=== PATIENT | male | born 1940 | race Caucasian/White ===

== ENCOUNTER → 2017-02-18 | Outpatient (CLI) | payer OTHER, MEDICARE ==
[~2017-02-18] MED LIST: ACETAMINOPHEN325 M1 PO; ACTOS 45 MG45 M1 PO; ADULT LOW DOSE81 MG PO; AMARYL1 MG PO; AMARYL2 MG PO; AMLODIPINE BESY10 MG PO; ARICEPT10 M1 PO; ASPIRIN EC81 M1 PO; ATIVAN1 MG PO; AVODART0.5 MG PO; BENADRYL ALLERG25 MG PO; CELEXA 20 MG TA20 M1 PO; CIPROFLOXACIN500 M3 PO; FLOMAX PO; FLONASE 0.05%50 MCG NASAL; GLUCOPHAGE1000 MG PO; HYDROCODONE-AP1 EAC6 PO; JANUVIA100 MG PO; LIPITOR20 MG PO; LIPITOR40 MG PO; LISINOPRIL40 MG PO; MEDROLDOSEPACK PO; MULTI VITAMIN1 EACH PO; MULTIVITAMINS PO; NAMENDA 5 MG TAB5 M1 PO; OMEPRAZOLE OR; PLAVIX 75 MG TA75 MG PO; PRESERVISION T1 EACH PO; PRILOSEC 20 MG20 MG PO; PRILOSEC20 MG PO; REGLAN 10 MG TA10 MG PO; REMERON15 MG PO; REQUIP 1 MG TABL1 M1 PO; SKELAXIN 800 M800 M1 PO; TIZANIDINE HCL4 M1 PO; TIZANIDINE HCL4 MG PO; TOPROL XL50 MG PO; TRAZODONE HCL50 MG PO; VALIUM5 MG PO; VICODIN 5-5001 EACH PO; VITAMIN D31000 UNI2 PO; XANAX 0.25 MG0.25 MG PO; ZOCOR20 MG PO
== END ==
LOC: NUC 06:40
DX: I25.10 Atherosclerotic heart disease of native coronary artery without angina pectoris (principal)

== ENCOUNTER → 2018-05-22 | Outpatient (CLI) | payer OTHER, MEDICARE ==
--- NOTE | 2018-05-22 10:22 | 2DMMODE ---
[facility] [place] [address] 2 D/M-MODE ECHOCARDIOGRAM Name: PONCHO CARRILLO Room #: REG [facility]#: [id number] ������������� Admission: 05/22/18 ������������� Attend Phys: Chet Hinojosa MD Discharge: ��� ������������� ��� Date of : 42 Date of Service: 05/22/18 1022 �� Report #: [id number] �������� ��������������������������������������������[id number] THIS REPORT FOR: //name// APPROVED REPORT Study performed: 05/22/2018 09:31:12 EXAM: Comprehensive 2D, Doppler, and color-flow Echocardiogram Patient Location: Out-Patient Status: routine BSA: 2.07 HR: 47 bpm BP: 168/70 mmHg Rhythm: NSR/BUNDLE Other Information Study Quality: Good Indications CAD. Hx: Stent, HTN, DM, LBBB. 2D Dimensions RVDd: 38.61 mm IVSd: 13.03 (7-11mm) LVOT Diam: 21.17 (18-24mm) LVDd: 57.79 mm PWd: 11.30 (7-11mm) Ascending Ao: 35.56 (22-36mm) LVDs: 42.28 (25-40mm) Aortic Root: 36.98 mm Volumes Left Atrial Volume (Systole) Single Plane 4CH: 67.03 mL Single Plane 2CH: 71.24 mL LA ESV Index: 36.00 mL/m2 Aortic Valve AoV Peak Jonny.: 1.48 m/s AO Peak Gr.: 8.79 mmHg LVOT Max P.03 mmHg LVOT Max V: 0.87 m/s SARAH Vmax: 2.07 cm2 Mitral Valve E/A Ratio: 0.7 MV Decel. Time: 405.87 ms MV E Max Jonyn.: 0.64 m/s [facility] [address] [place] [address] 2 D/M-MODE ECHOCARDIOGRAM Name: PONCHO CARRILLO CHARMAINE Room #: REG [facility]#: [id number] ������������� Admission: 05/22/18 ������������� Attend Phys: Chet Hinojosa MD Discharge: ��� ������������� ��� Date of : 42 Date of Service: 05/22/18 1022 �� Report #: [id number] �������� ��������������������������������������������[id number] MV A Jonny.: 0.98 m/s MV PHT: 117.70 ms IVRT: 129.18 ms Pulmonary Valve PV Peak Jonny.: 1.38 m/s PV Peak Gr.: 7.60 mmHg Pulmonary Vein P Vein S: 0.71 m/s P Vein A: 0.32 m/s P Vein D: 0.38 m/s P Vein A Dur.: 143.0 msec P Vein S/D Ratio: 1.87 Tricuspid Valve RAP Estimate: 5.00 mmHg Left Ventricle The left ventricle is normal size. Paradoxical septal motion consistent with conduction abnormality. Moderate basal septal hypertrophy is present. Left ventricular systolic function is normal. LVEF is 50-55%. Mild diastolic dysfunction is present (impaired relaxation pattern). Right Ventricle The right ventricle is normal size. The right ventricular systolic function is normal. Atria Left atrium is mildly dilated. The right atrium size is normal. Aortic Valve Aortic valve is trileaflet, mildly calcified. No aortic regurgitation is present. There is no aortic valvular stenosis. Mitral Valve The mitral valve is normal in structure. Mild mitral regurgitation. Tricuspid Valve The tricuspid valve is normal in structure. Trace tricuspid regurgitation. Unable to assess PA pressure. Pulmonic Valve The pulmonary valve is normal in structure. Trace pulmonic regurgitation. [facility] [employer] [place] [address] 2 D/M-MODE ECHOCARDIOGRAM Name: PONCHO CARRILLO Room #: REG CL [facility]#: [id number] ������������� Admission: 05/22/18 ������������� Attend Phys: Chet Hinojosa MD Discharge: ��� ������������� ��� Date of : 42 Date of Service: 05/22/18 1022 �� Report #: [id number] �������� ��������������������������������������������[id number] [employer] The aortic root is normal in size. The ascending aorta is normal in size. IVC is normal in size and collapses >50% with inspiration. Pericardium There is no pericardial effusion. <Conclusion> The left ventricle is normal size. Left ventricular systolic function is normal. Paradoxical septal motion consistent with conduction abnormality. Mild diastolic dysfunction is present (impaired relaxation pattern). The right ventricle is normal size. Left atrium is mildly dilated. Aortic valve is trileaflet, mildly calcified. Mild mitral regurgitation. Trace tricuspid regurgitation. ��������������������������������������������� <ELECTRONICALLY SIGNED> ���������������������������������������� By: Chet Hinojosa MD ��������������������������������������������� 05/22/18 1022 102 102 Chet Hinojosa MD /INF
== END ==
LOC: CV 08:15
DX: I34.0 Nonrheumatic mitral (valve) insufficiency (principal); I25.10 Atherosclerotic heart disease of native coronary artery without angina pectoris; Z88.8 Allergy status to other drugs, medicaments and biological substances; I10 Essential (primary) hypertension; E11.9 Type 2 diabetes mellitus without complications; I44.7 Left bundle-branch block, unspecified; Z95.0 Presence of cardiac pacemaker

== ENCOUNTER → 2018-10-13 | Outpatient (CLI) | payer OTHER, MEDICARE | LOC: RAD 12:42 | DX: R06.00 Dyspnea, unspecified (principal) ==

== ENCOUNTER 2018-10-30 06:53 | Outpatient (CLI) | payer OTHER, MEDICARE ==
[~2018-10-30] VITALS: Ht 175.3 cm; Wt 90.7 kg
[2018-10-30] VITALS (12 sets, daily range): BP systolic 111–152; BP diastolic 50–87
[2018-10-30 07:41] LABS: HEMOGLOBIN 13.6 gm/dL (14.0-18.0); MCH 26.9 pg (26.0-34.0); MCHC 33.2 g/dL (28.0-37.0); RBC 5.06 mil/uL (4.50-6.00); RDW 15.9 % (10.5-14.5); WBC 4.2 thou/uL (4.0-11.0)
[2018-10-30] MEDS ORDERED: LISINOPRIL20 MG PO (07:47)
[2018-10-30] MEDS ORDERED: JARDIANCE25 MG PO (07:51)
[2018-10-30] MEDS ORDERED: CHLORTHALIDONE25 MG PO (07:51)
[2018-10-30] MEDS ORDERED: LINZESS145 MCG PO (07:52)
[2018-10-30] MEDS ORDERED: LEXAPRO 10 MG T10 M1 PO (07:53)
[2018-10-30] MEDS ORDERED: SEROQUEL 25 MG25 M1 PO (07:53)
[2018-10-30 07:54] LABS: CREATININE 1.3 mg/dL (0.7-1.3); POTASSIUM 4.3 mmol/L (3.5-5.1)
--- NOTE | 2018-10-30 08:30 | EKG ---
[place] [address] [address] [place] [place] [address] ELECTROCARDIOGRAM REPORT Name: PONCHO CARRILLO [id number] Admission: 10/30/18 Attend Phys: Chet Hinojosa MD Discharge: Date of : 42 Report #: [id number] THIS REPORT FOR: //name// [facility] Test Date: 2018-10-30 Test Time: 07:46:51 Pat Name: PONCHO CARRILLO Department: Room: Gender: Box Office Attendant: Sylvia CHAVARRIA : 1940 Requested By: Chet Hinojosa Order Number: [id number] MD: Westley Hernandez Measurements Intervals [place] Rate: 59 P: 64 MO: 219 QRS: -60 QRSD: 169 T: 134 QT: 471 QTc: 467 Interpretive Statements Sinus rhythm Borderline prolonged [place] interval Left bundle branch block Compared to ECG 06/27/2015 18:30:04 No significant changes Electronically Signed On 10-30-2018 8:30:07 CDT by Westley Hernandez [email or web address] <ELECTRONICALLY SIGNED> By: Westley Hernandez MD, [facility] 10/30/18829 5 5 Westley Hernandez MD, [facility] /EPI
--- NOTE | 2018-10-30 16:49 | CATHLAB ---
[facility] [place] [place] [address] INVASIVE PROCEDURE REPORT Name: PONCHO CARRILLO Room #: 209-P [facility]#: [id number] Admission: 10/30/18 Attend Phys: Chet Hinojosa MD Discharge: Date of : 42 Date of Service: 10/30/18 1649 Report #: [id number] THIS REPORT FOR: //name// APPROVED REPORT Study performed: 10/30/2018 07:44:54 Patient Details The patient is a 78 year-old male Event Personnel Chet Hinojosa Sourcing Manager, Malaika Beard RN, Jose Lees RTR Joana, Berenice Jones Monitor, Jose Antonio Jones RTR Monitor Procedures Performed Left Heart Cath w/or w/o Coronaries 2619900 LHC FFR [id number] FFR C[address] Place w/wo Plasty Single LAD 592671 Indication Abnormal ECG, Dizziness and vertigo, Dyspnea Risk Factors HypercholesterolemiaPhysical Activity, Coronary Artery DiseaseHypertension Previous Procedures/Diagnoses Previous PCI Procedure Narrative The Right Groin^ was infiltrated with 1% Lidocaine subcutaneous anesthesia. A PINNACLE 4FR Sheath #[id number] sheath was inserted into the RFA^. Coronary angiography was performed using coronary diagnostic catheters. The right coronary system was accessed and visualized with a JR4 catheter. The left coronary system was accessed and visualized with a JL4 catheter. The left ventricle was accessed and visualized with a PIGTAIL catheter. The patient tolerated the procedure well and there were no complications associated with the procedure. There was no hematoma. Intraoperative Conscious Sedation Sedation start time: 826 Case end Time: 926 Fentanyl 50 mcg Versed 1 mg [facility] [address] [place] [address] INVASIVE PROCEDURE REPORT Name: PONCHO CARRILLO Room #: 209-P REG [facility]#: [id number] Admission: 10/30/18 Attend Phys: Chet Hinojosa MD Discharge: Date of : 42 Date of Service: 10/30/18 1649 Report #: [id number] Fluoro Time: 32.20 minutes Dose: DAP 52393.00 cGycm2 3724 mGy Contrast Type and Amount: Visipaque 125 ml Coronary Angiography The patient's coronary anatomy is right dominant. Diagnostic Cath Left Main This is a short segment, with no flow-limiting lesions. LAD There is a moderate to severe stenosis in the ostial/proximal segment. The remaining segments of the LAD did not have any flow-limiting lesions. Diagonal 1 There is a stent in the proximal segment, has a severe stenosis at the distal edge, 80%. Diagonal 2 This is a patent vessel, with no flow-limiting lesions. Circumflex This is a moderate size caliber vessel with mild calcification and mild disease in the proximal segment, 20%. OM1 This is a patent vessel, with no flow-limiting lesions. OM2 This is a patent vessel, with no flow-limiting lesions. Right Coronary This is a dominant vessel with mild disease in the proximal segment, 20%. R PDA This is a patent vessel, with no flow-limiting lesions. RPLV This is a patent vessel, with no flow-limiting lesions. Left Ventriculography Left Ventriculography was not performed. An LVEDP was measured and there is no gradient across the outflow tract. IVUS Anticoagulation was achieved with Angiomax. Fractional Flow Willow was performed on the ostial/proximal LAD segment vessel. A JL4 Guide Catheter was used to engage the left coronary artery ostium. A FFR wire was used. IVUS Findings FFR was performed with a 2 minute infusion of adenosine through a peripheral IV line. There was no change in the FFR at the conclusion of the adenosine infusion. Hemodynamics [facility] [address] [place] [address] INVASIVE PROCEDURE REPORT Name: PONCHO CARRILLO Room #: 209-P REG [facility]#: [id number] Admission: 10/30/18 Attend Phys: Chet Hinojosa MD Discharge: Date of : 42 Date of Service: 10/30/18 1649 Report #: [id number] The aortic pressure is 129/57 mmHg with a mean of 80 mmHg. The left ventricular pressure is 137/14 mmHg with a mean of mmHg. The left ventricular end diastolic pressure is 21 mmHg. PCI Technique Lesion Anticoagulation was achieved with Angiomax. Percutaneous coronary intervention was performed on the first diagnonal branch segment. The lesion stenosis prior to intervention was 80% with SANDY 3 flow. A VISTA 6FR JL4 #[id number] Guide Catheter was used to engage the ostium. A Luge Wire .014 x 182CM #[id number] Interventional Guidewire was used to cross the lesion. BALLOON DILATION A Balloon catheter Euphora RX 2.0 x 6 #[id number] was inserted and inflated up to 10.00atm for 11seconds. Additional Inflation: 12.00atm for 14seconds. STENT DEPLOYMENT A stent RESOLUTE GAY RX 2.25 X 8 #[id number] was inserted and inflated up to 14.00atm for 36seconds. Additional Inflation: 12.00atm for 7seconds. Additional Inflation: 18.00atm for 26seconds. POST STENT DEPLOYMENT BALLOON DILATION A Balloon catheter TREK NC RX 2.5 X 8 #[id number] was inserted and inflated up to 18.00atm for 17seconds. Final angiography reveals 5 % stenosis with SANDY 3 flow. PCI Technique Lesion The lesion stenosis prior to intervention was ostial/proximal LAD segment% with SANDY JL4 flow. A left coronary artery Guide Catheter was used to engage the ostium. A FFR wire Interventional Guidewire was used to cross the lesion. BALLOON DILATION A Balloon catheter FFR was performed with a 2 minute infusion of adenosine through a peripheral IV line. There was no change in the FFR at the conclusion of the adenosine infusion. was inserted and inflated up to kalia for seconds. Conclusion 1. Successful insertion of a drug-eluting stent into the first diagonal artery. 2. Borderline stenosis in the ostial/proximal LAD segment, with a negative FFR. 3. Mild disease in the left circumflex and RCA. [facility] [address] [place] [address] INVASIVE PROCEDURE REPORT Name: PONCHO CARRILLO Room #: 209-P REG [facility].#: [id number] Admission: 10/30/18 Attend Phys: Chet Hinojosa MD Discharge: Date of : 42 Date of Service: 10/30/181648 Report #: [id number] 4. Recommend dual antiplatelet therapy and aggressive risk factor management. <ELECTRONICALLY SIGNED> By: Chet Hinojosa MD 10/30/181648 48 48 Chet Hinojosa MD /INF
--- NOTE | 2018-10-30 18:21 | NUR ---
PT ARRIVED ON UNIT AT 1030. PT POST-CATH PROCEDURE. FALL PRECAUTIONS ARE IN PLACE. ASSESSMENT CHARTED. PT A&O X4. PT ARRIVED WITH SPOUSE AND CHILDREN. PT STATED HIS WAS IN ZERO OUT OF TEN PAIN. PT'S RIGHT GROIN SITE IS CLEAN, DRY, AND INTACT. NO BLEEDING PRESENT. NO HEMATOMA PRESENT. PT'S VITAL SIGNS ARE STABLE. PT IS BEDREST. PT STARTED POST VITAL SIGNS. PT AND FAMILY EDUCATED ON POST-PROCEDURE RULES AND INFORMATION. PT AND FAMILY STATED UNDERSTANDING.
--- NOTE | 2018-10-30 18:47 | NUR ---
ASSUMED PT CARE AT 1030. PT A&O X4. FALL PRECAUTIONS ARE IN PLACE. ASSESSMENT CHARTED. PT'S VITAL SIGNS ARE STABLE. PT STATED HE HAS HAD ZERO OUT OF TEN PAIN. PT'S RIGHT GROIN SITE IS CLEAN, DRY, AND INTACT. NO BLEEDING AT GROIN SITE. NO HEMATOMA AT GROIN SITE. FAMILY VISITED PT THROUGHOUT THE DAY. FAMILY EDUCATED ABOUT PT'S STATUS. PT'S FAMILY COMMUNICATED UNDERSTANDING WITH EDUCATION. PT RECEIVED 6 HRS OF NORMAL SALINE AT 100 MLS/HR. PT COMPLETED 6 HRS AT 1800. PT COMPLETED POST-CATH VITAL SIGNS AT 1515. ASSESSED PT'S GAIT. PT'S GAIT IS STABLE AND BALANCED.
[2018-10-31] VITALS: BP 121/54
[2018-10-31 04:00] VITALS: BP 132/52
[2018-10-31 05:39] LABS: HEMATOCRIT 39.4 % (42.0-52.0); HEMOGLOBIN 12.9 gm/dL (14.0-18.0); MCH 26.6 pg (26.0-34.0); MCHC 32.8 g/dL (28.0-37.0); MCV 81.1 fL (80.0-100.0); RBC 4.86 mil/uL (4.50-6.00); RDW 15.8 % (10.5-14.5); WBC 4.1 thou/uL (4.0-11.0)
[2018-10-31 05:49] LABS: ALBUMIN 3.9 g/dL (3.4-5.0); CALCIUM 9.1 mg/dL (8.5-10.1); CREATININE 1.2 mg/dL (0.7-1.3); TOTAL BILIRUBIN 0.6 mg/dL (<0.1-1.0); TOTAL PROTEIN 7.6 g/dL (6.4-8.2)
--- NOTE | 2018-10-31 06:31 | NUR ---
ASSUME CARE 1900. PT/VITALS STABLE. DENIES ANY PAIN. UP AD KIKO. RIGHT GROIN CDI. PROGRESSING WELL WITH POC. PLAN IS POSSIBLE DISCHARGE HOME TODAY. ADEQUATE REST NOTED. WILL CONTINUE TO FOLLOW WITH POC
--- NOTE | 2018-10-31 07:38 | EKG ---
[place] [address] [place] [address] ELECTROCARDIOGRAM REPORT Name: PONCHO CARRILLO Room #: 209-P [facility]#: [id number] Admission: 10/30/18 Attend Phys: Chet Hinojosa MD Discharge: Date of : 42 Report #: [id number] THIS REPORT FOR: //name// 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: EMILY : 1940 Requested By: Chet Hinojosa Order Number: [id number] MD: Westley Hernandez Measurements Intervals [place] Rate: 57 P: 74 FL: 217 QRS: -60 QRSD: 171 T: 154 QT: 478 QTc: 466 Interpretive Statements Sinus rhythm Borderline prolonged [place] interval Left bundle branch block Compared to ECG 10/30/2018 07:46:51 No significant changes Electronically Signed On 10-31-2018 7:38:12 CDT by Westley Hernandez [email or web address] <ELECTRONICALLY SIGNED> By: Westley Hernandez MD, [facility] 10/31/18 0738 1004 1004 Westley Hernandez MD, [facility] /EPI
[2018-10-31 08:10] VITALS: BP 169/73
[2018-10-31] MEDS ORDERED: CLOPIDOGREL75 MG PO (08:17)
[2018-10-31 08:25] VITALS: BP 132/52
[2018-10-31] MEDS ORDERED: PANTOPRAZOLE SO40 M1 PO (08:26)
[2018-10-31 08:47] VITALS: BP 169/73
--- NOTE | 2018-10-31 09:58 | NUR ---
PT CARE ASSUMED APPROX 0700. PT ALERT AND ORIENTED X4. DENIES PAIN AND SOA. VSS. BS WNL. PT DISCHARGED AT THIS TIME. PAPERWORK FOR DISCHARGE REVIEWED WITH PT AND SPOUSE. BOTH DENY QUESTIONS OR CONCERNS REGARDING MEDS, SCRIPTS, F/U APPTS, POST CATH SITE CARE, ACTIVITY, DIET OR GENERAL POST HOSPITAL CARES. IV OUT, TELE BOX OFF. HOSPITAL STAFF ESCORTED PT OUT VIA WHEELCHAIR.
--- NOTE | 2018-10-31 13:43 | EKG ---
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: [email or web address] : 1940 Requested By: Chet Hinojosa Order Number: [id number] MD: Chet Hinojosa Measurements Intervals [place] Rate: 61 P: 75 PA: 230 QRS: -59 QRSD: 178 T: 144 QT: 480 QTc: 484 Interpretive Statements Sinus rhythm Ventricular premature complex Prolonged PA interval Left bundle branch block Compared to ECG 10/30/2018 07:46:51 Ventricular premature complex(es) now present Electronically Signed On 10-31-2018 13:43:21 CDT by Chet Hinojosa [email or web address] <ELECTRONICALLY SIGNED> By: Chet Hinojosa MD 10/31/18 1343 4 4 Chet Hinojosa MD /RAJEEV
--- NOTE | 2018-11-01 11:25 | D ---
[facility] [place] [address] DISCHARGE SUMMARY Name: PONCHO CARRILLO Room #: DEP [facility]#: [id number] Admission: 10/30/18 Attend Phys: Chet Hinojosa MD Discharge: 10/31/18 Date of : 42 Report #: [id number] THIS REPORT FOR: //name// CC: Chet Butler DATE OF SERVICE: 10/31/2018 FINAL DIAGNOSES: 1. Unstable angina, status post percutaneous coronary intervention. 2. Remote history of coronary artery disease. 3. Chronic obstructive pulmonary disease. 4. Hypertension. 5. Hypercholesterolemia. 6. Gait instability. 7. Left bundle-branch block. HISTORY OF PRESENT ILLNESS: Please see the original H and P for full details. The patient presented with an episode of dyspnea, diaphoresis and weakness. It occurred at home and he had just walked into the house from the backyard. He developed dyspnea and diaphoresis. He almost passed out. They were concerned that this was similar to his previous presentation prior to undergoing stent placement remotely. We had initially talked about undergoing stress test. However, the family declined and wanted to proceed with a cardiac catheterization. Please see the cardiac catheterization report for full details. There was a borderline stenosis in the ostial/proximal segment of the LAD. An FFR was performed, nonischemic. The stent in the first diagonal artery had a severe restenosis at the distal edge. Angioplasty was performed with placement of a single drug-eluting stent. He has remained hemodynamically stable overnight. FINAL DISPOSITION: Aspirin 81 mg daily, Plavix 75 mg daily, amlodipine 10 mg, omeprazole, simvastatin, lisinopril 20 mg b.i.d., Jardiance, chlorthalidone, glimepiride, and metformin. He is given instructions for followup in the office. <ELECTRONICALLY SIGNED> By: Chet Hinojosa MD 11/01/18 1125 0825 1054 Chet Hinojosa MD /nt
== END 2018-10-31 09:30 | disposition home or self-care (01) ==
LOC: CATH 06:53 → 2N 10:03 → CATH 14:30 → ENTRNSPT 10-31 09:11 → EDTRNSPTSTS 10-31 09:24 → CATH 10-31 09:30
PROVIDERS: Internal Medicine Cardiovascular Disease
DX: I25.10 Atherosclerotic heart disease of native coronary artery without angina pectoris (principal); I10 Essential (primary) hypertension; E78.5 Hyperlipidemia, unspecified; E11.9 Type 2 diabetes mellitus without complications; N40.0 Benign prostatic hyperplasia without lower urinary tract symptoms; J44.9 Chronic obstructive pulmonary disease, unspecified; K21.9 Gastro-esophageal reflux disease without esophagitis; F41.9 Anxiety disorder, unspecified; Z98.890 Other specified postprocedural states; Z90.49 Acquired absence of other specified parts of digestive tract; Z79.899 Other long term (current) drug therapy; Z87.891 Personal history of nicotine dependence; Z88.8 Allergy status to other drugs, medicaments and biological substances; Z79.82 Long term (current) use of aspirin
CPT/HCPCS: 10081

== ENCOUNTER → 2019-06-17 | Outpatient (CLI) | payer OTHER, MEDICARE ==
[~2019-06-17] MED LIST changes: +CHLORTHALIDONE25 MG PO; +CLOPIDOGREL75 MG PO; +JARDIANCE25 MG PO; +LEXAPRO 10 MG T10 M1 PO; +LINZESS145 MCG PO; +LISINOPRIL20 MG PO; +PANTOPRAZOLE SO40 M1 PO; +SEROQUEL 25 MG25 M1 PO
--- NOTE | 2019-06-18 15:05 | P ---
[facility] [place] [address] PROCEDURE REPORT Name: PONCHO CARRILLO [id number] Admission: 06/17/19 Attend Phys: Rasta Krishnan Discharge: Date of : 42 Report #: [id number] THIS REPORT FOR: cc: Gus Butler,Rasta Goetz MD ~ CC: Rasta Butler MD DATE OF SERVICE: 06/17/2019 PROCEDURE PERFORMED: Incomplete colonoscopy. HISTORY OF PRESENT ILLNESS: The patient is a 78-year-old male with a history of anemia, hemoglobin 11. He denies any obvious blood in his stools. He does take aspirin and Plavix, which has been held for the last several days. Upper endoscopy was just performed with possible mass lesion in the mid esophagus noted at 30 cm. Biopsies were obtained. No evidence of bleeding. Plan is for colonoscopy. DESCRIPTION OF PROCEDURE: The risks and benefits of the procedure were explained to the patient, those risks including but not limited to bleeding, perforation, the risk of sedation. He understood these risks and gave informed consent. Sedation was given using propofol per anesthesia. Next, a digital rectal exam was initially performed, which was normal. Next, using a standard Olympus colonoscope, the scope was placed in the patient's anus and advanced under direct vision into the sigmoid colon, at which point there was obvious poor prep throughout the entire rectum and sigmoid colon. At this point, the procedure was terminated. The scope was withdrawn. The patient tolerated the procedure well. IMPRESSION: Poor prep. RECOMMENDATIONS: We will await upper endoscopy biopsies initially. If these are negative, consider repeat colonoscopy with a different prep in the near future as well as Hemoccult testing stools. Thank you for allowing me to participate in his care. <ELECTRONICALLY SIGNED> By: Rasta Brower MD 06/18/19 1505 0922 0944 Rasta Brower MD /nt
--- NOTE | 2019-06-18 15:05 | P ---
[facility] [place] [address] PROCEDURE REPORT Name: PONCHO CARRILLO [facility] [id number] Admission: 06/17/19 Attend Phys: Rasta Krishnan Discharge: Date of : 42 Report #: [id number] THIS REPORT FOR: cc: Gus Butler,Rasta Goetz MD ~ CC: Rasta Butler MD PROCEDURE PERFORMED: Upper endoscopy with biopsies. HISTORY OF PRESENT ILLNESS: The patient is a 78-year-old male with a history of mild anemia, recent hemoglobin was 11.3. Repeat hemoglobin 11. He denies any obvious blood in his stools. The patient does take aspirin and Plavix on a regular basis for history of cardiac stent. He has been holding this for the last few days. Plan is for EGD and colonoscopy today. DESCRIPTION OF PROCEDURE: The risks and benefits of the procedure were explained to the patient, those risks including but not limited to bleeding, perforation and the risk of sedation. He understood these risks and gave informed consent. Sedation was given using propofol per anesthesia. Next, using a standard Olympus upper endoscope, the scope was placed in the patient's mouth and advanced under direct vision through the esophagus, stomach and into the second portion of the duodenum. Larynx was normal in appearance. In the mid esophagus at 30 cm, a possible mass was noted and thickening in that area. Several biopsies were obtained. No evidence of ulceration or bleeding. The proximal esophagus and distal esophagus were normal. The GE junction was normal. Overall, the gastric mucosa was normal. The pylorus was normal and patent. The duodenal bulb, first and second portion were all normal. Random biopsies were obtained of the duodenum to rule out the possibility of celiac sprue. The scope was then withdrawn and the procedure terminated. The patient tolerated the procedure well. IMPRESSION: 1. Possible mass thickening in the mid esophagus at 30 cm. Biopsies obtained. 2. Otherwise, normal upper endoscopy. RECOMMENDATIONS: 1. Await biopsy results. 2. We will proceed with colonoscopy next today. [facility] [address] [place] [address] PROCEDURE REPORT Name: PONCHO CARRILLO CHARMAINE Room #: REG [facility] Penny#: [id number] Admission: 06/17/19 Attend Phys: Rasta Krishnan Discharge: Date of : 42 Report #: [id number] Thank you for allowing me to participate in his care. <ELECTRONICALLY SIGNED> By: Rasta Brower MD 06/18/19 1505 0920 0932 Rasta Brower MD /nt
--- NOTE | 2019-06-19 14:07 | PATH ---
[facility] [place] [address] PATHOLOGY RPT PROCEDURE Name: CARRILLOPONCHO Room #: REG CLSaima Kelly.#: [id number] Admission: 06/17/19 Date of : 42 Discharge: Report #: [id number] Path Case #: [id number] [facility] Accession Number: [id number] . 01 Material submitted: . PART A: duodenum - BIOPSY OF DUODENAL R/O SPRUE PART B: esophagus - BIOPSY OF 30CM ESOPHAGUS . 01 Clinical history: . History of anemia A: R/O sprue . 02 Diagnosis: A. Small bowel mucosa, duodenum rule out sprue, endoscopic biopsy: - No significant diagnostic abnormality present. - Negative for villous blunting or increase in intraepithelial lymphocytes. . B. 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 LBQ 06/18/2019 1334 Local . 02 Comment: Examination shows a poorly differentiated epithelioid neoplasm. A properly controlled p63 immunohistochemical stain is performed on block B1 and it shows strong nuclear reactivity present supporting the diagnosis rendered. . Co-review: Dr. Qian Montes De Oca . Findings of this case are communicated to Ms. Rita Verdin, nurse practitioner, at approximately 12:45 p.m. on 06/18/2019. . The esophageal biopsy is sent for Her-2 IHC analysis and the results will be reported in an addendum. (IUV/db; 06/18/2019) . 02 Electronically signed: . Josie Ramirez MD, Pathologist NPI- [id number] . 01 Gross description: . A. The specimen is received in formalin, labeled "Poncho Carrillo, biopsy of duodenal, R/O sprue". Received are three segments of pale tang soft tissue ranging in size from 0.3 to 0.4 cm in maximum dimensions. The specimen is submitted entirely [place] [address] PATHOLOGY RPT PROCEDURE Name: GERARDOPONCHOHAILEY MONTANO Room #: REG CLI [facility].#: [id number] Admission: 06/17/19 Date of : 42 Discharge: Report #: [id number] Path Case #: [id number] . B. The specimen is received in formalin, labeled "Poncho Carrillo, biopsy at 30 cm esophagus". Received are five segments of pale tang soft tissue ranging in size from 0.3 to 0.5 cm in maximum dimensions. The specimen is submitted entirely in cassette B1. (CAA; 06/17/2019) QAC/QAC 06/17/2019 1702 Local . 02 Pathologist provided ICD-10: C15.9 . 02 CPT . 205892, 589900, [id number] Specimen Comment: A courtesy copy of this report has been sent to [phone] Specimen Comment: [phone] Specimen Comment: Report sent to / DR BURGESS Performed at: [address], [place] [id number] MD Angelo Gil MD Phone: [phone] Performed at: [address] [id number] MD Josie Ramirez MD Phone: [phone]
== END | disposition home or self-care (01) ==
LOC: GI 07:30
DX: D64.9 Anemia, unspecified (principal); C15.9 Malignant neoplasm of esophagus, unspecified; E11.9 Type 2 diabetes mellitus without complications; Z98.890 Other specified postprocedural states; Z79.899 Other long term (current) drug therapy; Z88.8 Allergy status to other drugs, medicaments and biological substances; Z87.19 Personal history of other diseases of the digestive system
CPT/HCPCS: 62110; 62900

== ENCOUNTER → 2019-06-26 | Outpatient (CLI) | payer OTHER, MEDICARE | LOC: CAT 09:45 | DX: C15.9 Malignant neoplasm of esophagus, unspecified (principal); R90.82 White matter disease, unspecified ==

== ENCOUNTER → 2019-07-17 | Outpatient (CLI) | payer OTHER, MEDICARE ==
[~2019-07-17] VITALS: Ht 177.8 cm; Wt 87.1 kg
[~2019-07-17] MED LIST changes: +COREG6.25 MG PO; +GLIMEPIRIDE4 MG PO; +IRON325 PO; +LANTUS SUBQ; +OCUVITE ADULT1 EAC1 PO; +PROTONIX40 M2 PO; +SEROQUEL 50 MG50 M1 PO; +STOOL SOFTENER100 MG PO; +STRESS B-COMPL1 EACH PO; +ZOCOR 20 MG TAB20 M1 PO
--- NOTE | 2019-07-17 10:48 | P ---
[facility] [place] [address] PROCEDURE REPORT Name: PONCHO CARRILLO Room #: REG [facility] Robin.#: [id number] Admission: 07/17/19 Attend Phys: Rasta Krishnan Discharge: Date of : 42 Report #: [id number] THIS REPORT FOR: cc: Gus Butler,Rasta Goetz MD ~ CC: Rasta Butler MD DATE OF SERVICE: 07/17/2019 PROCEDURE PERFORMED: Colonoscopy with biopsies. HISTORY OF PRESENT ILLNESS: The patient is a 78-year-old male who underwent an EGD and attempted colonoscopy by myself on 06/17/2019. Reason for endoscopy at that time was anemia. Hemoglobin at that time was 11.3. No obvious blood in his stools. The patient had been on aspirin and Plavix for previous cardiac stent. Was noted to have a mass in the mid esophagus at 30 cm. 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 Colonoscopy at that time was attempted; however, the prep was poor. He then was evaluated by Dr. Barton with Oncology. A PET scan was performed showing activity in the mid esophagus, but no evidence of metastatic disease. We discussed reattempting colonoscopy with further prepping due to his history of anemia. Plan is likely for radiation therapy in the near future. He is also set up for an endoscopic ultrasound next week at [facility]. DESCRIPTION OF PROCEDURE: The risks and benefits of the procedure were explained to the patient, those risks including but not limited to bleeding, perforation and the risk of sedation. He understood these risks and gave informed consent. Sedation was given using propofol per anesthesia. Next, a digital rectal exam was initially performed, which was normal. Next, using a standard Olympus colonoscope, the scope was placed in the patient's anus and advanced under direct vision to the cecum. The overall prep was good in most areas; however, there were a few small areas where the prep was fair. I did perform multiple washings and aspirations, again most areas were well visualized. The visualized portion of the cecum were normal. The ileocecal valve was normal. Ascending colon was normal. In the transverse colon, a 5 mm sessile polyp was noted. This was removed with cold forceps, otherwise normal. Descending colon, normal. Again, a fair prep in the sigmoid colon, most areas were visualized was normal. The rectal mucosa was normal. On retroflexion, no abnormalities were noted. Scope was then withdrawn and the procedure terminated. The patient tolerated the procedure well. [address] [address] PROCEDURE REPORT Name: PONCHO CARRILLO Room #: REG SERAFIN Francis#: [id number] Admission: 07/17/19 Attend Phys: Rasta Krishnan Discharge: Date of : 42 Report #: [id number] IMPRESSION: 1. Small colon polyp. 2. Otherwise, normal colonoscopy. RECOMMENDATIONS: 1. Await biopsy results. 2. Agree with plan of endoscopic ultrasound in the near future and the patient is likely to start radiation therapy soon. Thank you for allowing me to participate in his care. <ELECTRONICALLY SIGNED> By: Rasta Brower MD 07/17/19 1048 0922 0940 Rasta Brower MD /nt
--- NOTE | 2019-07-22 14:08 | PATH ---
[facility] [address] [place] [address] PATHOLOGY RPT PROCEDURE Name: PONCHO CARRILLO Room #: REG [facility] M.R.#: [id number] Admission: 07/17/19 Date of : 42 Discharge: Report #: [id number] Path Case #: [id number] [facility] Accession Number: [id number] . 01 Material submitted: . colon - POLYP AT TRANSVERSE COLON. Modifiers: transverse . 01 Clinical history: . Anemia . 02 Diagnosis: Large bowel "polyp at transverse colon", endoscopic biopsy: - Polypoid fragment of large bowel mucosa with prominent intramucosal lymphoid aggregate. - Negative for dysplasia and malignancy. (MLK:essie; 07/20/2019) QMS 07/20/2019 1547 Local . 02 Electronically signed: . Bridger Weston MD, Pathologist NPI- [id number] . 01 Gross description: . The specimen is received in formalin, labeled "Poncho Carrillo, polyp at transverse colon" and consists of multiple fragments of tang tissue measuring 0.6 x 0.6 x 0.1 cm in aggregate which are entirely submitted in A1. (JEWELS; 07/17/2019) JFQ/JFQ 07/17/2019 1422 Local . 02 Pathologist provided ICD-10: D64.9 . 02 CPT . 335983 Specimen Comment: A courtesy copy of this report has been sent to [phone] Specimen Comment: Report sent to Performed at: [facility] [address] [id number] MD Angelo Gil MD Phone: [phone] Performed at: 02 [facility] [address] [id number] MD Gonzales Nash MD Phone: [phone]
== END | disposition home or self-care (01) ==
LOC: GI 07:05
DX: D64.9 Anemia, unspecified (principal); K63.5 Polyp of colon; J43.9 Emphysema, unspecified; K21.9 Gastro-esophageal reflux disease without esophagitis; E11.9 Type 2 diabetes mellitus without complications; Z87.891 Personal history of nicotine dependence; Z79.899 Other long term (current) drug therapy
CPT/HCPCS: 62110; 62900

== ENCOUNTER → 2019-08-03 | Outpatient (CLI) | payer OTHER, MEDICARE | LOC: SJCVC 10:49 | PROVIDERS: ATTEND Internal Medicine Cardiovascular Disease | DX: I45.4 Nonspecific intraventricular block (principal); R00.1 Bradycardia, unspecified; R94.31 Abnormal electrocardiogram [ECG] [EKG]; I25.10 Atherosclerotic heart disease of native coronary artery without angina pectoris; I10 Essential (primary) hypertension; E78.00 Pure hypercholesterolemia, unspecified; J44.9 Chronic obstructive pulmonary disease, unspecified; E11.9 Type 2 diabetes mellitus without complications; K21.9 Gastro-esophageal reflux disease without esophagitis; E78.5 Hyperlipidemia, unspecified; Z82.49 Family history of ischemic heart disease and other diseases of the circulatory system; Z79.899 Other long term (current) drug therapy; Z87.891 Personal history of nicotine dependence; Z79.84 Long term (current) use of oral hypoglycemic drugs; Z79.4 Long term (current) use of insulin ==

== ENCOUNTER → 2019-09-01 | Outpatient (CLI) | payer OTHER, MEDICARE | LOC: SJCVC 11:29 | PROVIDERS: ATTEND Internal Medicine Cardiovascular Disease | DX: R94.31 Abnormal electrocardiogram [ECG] [EKG] (principal); R07.9 Chest pain, unspecified; R06.09 Other forms of dyspnea; I25.10 Atherosclerotic heart disease of native coronary artery without angina pectoris; E78.00 Pure hypercholesterolemia, unspecified; I10 Essential (primary) hypertension; J44.9 Chronic obstructive pulmonary disease, unspecified; E11.9 Type 2 diabetes mellitus without complications; K21.9 Gastro-esophageal reflux disease without esophagitis; M10.9 Gout, unspecified; E78.5 Hyperlipidemia, unspecified; Z79.4 Long term (current) use of insulin; Z79.84 Long term (current) use of oral hypoglycemic drugs; Z79.899 Other long term (current) drug therapy; Z82.49 Family history of ischemic heart disease and other diseases of the circulatory system; Z87.891 Personal history of nicotine dependence ==

== ENCOUNTER → 2019-09-09 | Outpatient (CLI) | payer OTHER, MEDICARE | LOC: SJCVCIMAG 10:21 | PROVIDERS: ATTEND Internal Medicine Cardiovascular Disease | DX: I25.10 Atherosclerotic heart disease of native coronary artery without angina pectoris (principal); I10 Essential (primary) hypertension; E11.9 Type 2 diabetes mellitus without complications; J44.9 Chronic obstructive pulmonary disease, unspecified; Z79.4 Long term (current) use of insulin; Z79.899 Other long term (current) drug therapy ==

== ENCOUNTER 2019-12-05 20:07 | Emergency (ER) | payer OTHER, MEDICARE ==
[~2019-12-05] VITALS: Ht 175.3 cm; Wt 90.7 kg
[2019-12-05 20:23] LABS: HEMATOCRIT 41.7 % (42.0-52.0); HEMOGLOBIN 14.1 gm/dL (14.0-18.0); MCH 31.4 pg (26.0-34.0); MCHC 33.7 g/dL (28.0-37.0); MCV 93.1 fL (80.0-100.0); PLATELET COUNT 173 thou/uL (150-400); RBC 4.48 mil/uL (4.50-6.00); RDW 16.1 % (10.5-14.5); WBC 3.3 thou/uL (4.0-11.0)
[2019-12-05 20:37] LABS: ANION GAP 11 mmol/L (7-16); BUN 14 mg/dL (7-18); CALCIUM 8.8 mg/dL (8.5-10.1); CHLORIDE 103 mmol/L (98-107); CO2 27 mmol/L (21-32); CREATININE 0.9 mg/dL (0.7-1.3); GLUCOSE 262 mg/dL (74-106); POTASSIUM 3.6 mmol/L (3.5-5.1); SODIUM 141 mmol/L (136-145); TROPONIN-I <0.06 ng/mL (<0.06)
[2019-12-05 20:56] LABS: DIRECT BILIRUBIN 0.2 mg/dL (<0.1-0.2); MAGNESIUM 1.8 mg/dL (1.8-2.4); TOTAL BILIRUBIN 0.7 mg/dL (0.2-1.0)
[2019-12-05 21:12] LABS: ABSOLUTE NEUTROPHILS 2.2 thou/uL (1.4-8.2)
[2019-12-05 21:13] LABS: ANISOCYTOSIS 1+
[2019-12-05 21:52] VITALS: BP 161/72
--- NOTE | 2019-12-07 08:09 | EKG ---
[facility] [place] [address] ELECTROCARDIOGRAM REPORT Name: PONCHO CARRILLO Room #: [facility]P [facility] [id number] Admission: 12/05/19 Attend Phys: Discharge: 12/05/19 Date of : 42 Report #: [id number] THIS REPORT FOR: cc: Gus Butler Steven F. DO Couchonnal, Luis F. MD ~ THIS REPORT FOR: //name// [facility] ED Test Date: 2019-12-05 Test Time: 20:10:12 Pat Name: PONCHO CARRILLO Department: Room: Gender: Kettle Girl: kofi : 1940 Requested By: Rodrigue Gooden Order Number: [id number] MD: Jaylan Wilkerson Measurements Intervals [place] Rate: 82 P: 100 [place]: 211 QRS: -47 QRSD: 177 T: 125 QT: 439 QTc: 513 Interpretive Statements Sinus arrhythmia Ventricular premature complex Left bundle branch block Baseline wander in lead(s) V5,V6 Compared to ECG 10/31/2018 07:05:29 Sinus rhythm no longer present First degree AV block no longer present Electronically Signed On 12-07-2019 8:09:19 CDT by Jaylan Wilkerson [email or web address] <ELECTRONICALLY SIGNED> By: Jaylan Wilkerson MD 12/07/19808 09 09 Jaylan Wilkerson MD /EPI
== END 2019-12-05 21:53 | disposition home or self-care (01) ==
LOC: ER 20:07
PROVIDERS: Emergency Medicine; Nurse Practitioner
DX: I25.10 Atherosclerotic heart disease of native coronary artery without angina pectoris (principal); R07.89 Other chest pain; I10 Essential (primary) hypertension; E11.9 Type 2 diabetes mellitus without complications; K21.9 Gastro-esophageal reflux disease without esophagitis; E78.5 Hyperlipidemia, unspecified; J44.9 Chronic obstructive pulmonary disease, unspecified; Z79.82 Long term (current) use of aspirin; Z79.01 Long term (current) use of anticoagulants; Z79.899 Other long term (current) drug therapy; Z87.891 Personal history of nicotine dependence; Z88.8 Allergy status to other drugs, medicaments and biological substances; Z86.2 Personal history of diseases of the blood and blood-forming organs and certain disorders involving the immune mechanism

== ENCOUNTER 2020-01-28 11:27 | Emergency (ER) | payer OTHER, MEDICARE ==
[~2020-01-28] VITALS: Ht 177.8 cm; Wt 85.3 kg
[2020-01-28 12:14] LABS: HEMATOCRIT 43.4 % (42.0-52.0); HEMOGLOBIN 14.7 gm/dL (14.0-18.0); MCH 30.6 pg (26.0-34.0); MCHC 33.9 g/dL (28.0-37.0); MCV 90.2 fL (80.0-100.0); RBC 4.81 mil/uL (4.50-6.00); WBC 4.6 thou/uL (4.0-11.0)
[2020-01-28 12:27] LABS: CALCIUM 8.9 mg/dL (8.5-10.1)
[2020-01-28 13:17] LABS: URINE BILIRUBIN NEGATIVE (Negative); URINE BLOOD NEGATIVE (Negative); URINE CLARITY CLEAR; URINE COLOR YELLOW; URINE GLUCOSE-RANDOM* 3+ (Negative); URINE KETONES NEGATIVE (Negative); URINE LEUKOCYTES-REFLEX NEGATIVE (Negative); URINE NITRITE-REFLEX NEGATIVE (Negative); URINE PROTEIN (DIPSTICK) NEGATIVE (Negative); URINE UROBILINOGEN 0.2 E.U./dl (0.2-1.0)
[2020-01-28 13:31] VITALS: BP 189/90
== END 2020-01-28 13:32 | disposition home or self-care (01) ==
LOC: ER 11:27
PROVIDERS: Physician Assistant
DX: S09.90XA Unspecified injury of head, initial encounter (principal); E11.9 Type 2 diabetes mellitus without complications; I10 Essential (primary) hypertension; J44.9 Chronic obstructive pulmonary disease, unspecified; I25.10 Atherosclerotic heart disease of native coronary artery without angina pectoris; F41.9 Anxiety disorder, unspecified; K21.9 Gastro-esophageal reflux disease without esophagitis; E78.5 Hyperlipidemia, unspecified; Z90.49 Acquired absence of other specified parts of digestive tract; Z79.82 Long term (current) use of aspirin; Z79.899 Other long term (current) drug therapy; Z88.8 Allergy status to other drugs, medicaments and biological substances; Z87.891 Personal history of nicotine dependence; W19.XXXA Unspecified fall, initial encounter; Y93.89 Activity, other specified; Y92.89 Other specified places as the place of occurrence of the external cause; Y99.8 Other external cause status

== ENCOUNTER → 2020-02-10 | Outpatient (CLI) | payer OTHER, MEDICARE | LOC: MRI 14:17 | PROVIDERS: ATTEND Neuromusculoskeletal Medicine & OMM | DX: S09.8XXA Other specified injuries of head, initial encounter (principal); I63.9 Cerebral infarction, unspecified; I67.82 Cerebral ischemia; X58.XXXA Exposure to other specified factors, initial encounter; Y93.89 Activity, other specified; Y92.89 Other specified places as the place of occurrence of the external cause; Y99.8 Other external cause status ==

== ENCOUNTER 2020-04-04 17:46 | Emergency (ER) | payer OTHER, MEDICARE ==
[~2020-04-04] VITALS: Ht 175.3 cm; Wt 76.7 kg
[2020-04-04] MEDS ORDERED: LINZESS145 MCG PO (19:56)
[2020-04-04 20:05] LABS: HEMATOCRIT 37.3 % (42.0-52.0); HEMOGLOBIN 12.3 gm/dL (14.0-18.0); MCH 29.7 pg (26.0-34.0); MCV 89.9 fL (80.0-100.0); PLATELET COUNT 209 thou/uL (150-400); RBC 4.15 mil/uL (4.50-6.00); RDW 16.1 % (10.5-14.5); WBC 2.9 thou/uL (4.0-11.0)
[2020-04-04 20:15] LABS: CALCIUM 9.2 mg/dL (8.5-10.1); CREATININE 0.9 mg/dL (0.7-1.3); POTASSIUM 3.9 mmol/L (3.5-5.1)
[2020-04-04 20:21] LABS: ALBUMIN 3.3 g/dL (3.4-5.0); TOTAL BILIRUBIN 0.8 mg/dL (0.2-1.0); TOTAL PROTEIN 6.4 g/dL (6.4-8.2)
[2020-04-04 20:30] LABS: ABSOLUTE NEUTROPHILS 1.8 thou/uL (1.4-8.2)
[2020-04-04 21:26] LABS: URINE BILIRUBIN NEGATIVE (Negative); URINE BLOOD NEGATIVE (Negative); URINE CLARITY CLEAR; URINE COLOR YELLOW; URINE GLUCOSE-RANDOM* 3+ (Negative); URINE KETONES NEGATIVE (Negative); URINE LEUKOCYTES-REFLEX NEGATIVE (Negative); URINE NITRITE-REFLEX NEGATIVE (Negative); URINE PROTEIN (DIPSTICK) NEGATIVE (Negative)
[2020-04-04 22:46] VITALS: BP 148/68
--- NOTE | 2020-04-05 14:23 | EKG ---
[facility] [place] [address] ELECTROCARDIOGRAM REPORT Name: PONCHO CARRILLO CHARMAINE Room #: [facility]P [facility] [id number] Admission: 04/04/20 Attend Phys: Discharge: 04/04/20 Date of : 42 Report #: [id number] [facility] ED Test Date: 2020-04-04 Test Time: 20:14:16 Pat Name: PONCHO CARRILLO Department: Room: Gender: M Oncology Radiation Physician: MPARRosanne : 1940 Requested By: Shorty Trujillo Order Number: [id number] MD: Rashel Lenz Measurements Intervals [place] Rate: 68 P: 74 [place]: 198 QRS: -48 QRSD: 166 T: 123 QT: 458 QTc: 488 Interpretive Statements Sinus rhythm Left bundle branch block Compared to ECG 12/05/2019 20:10:12 Sinus arrhythmia no longer present Ventricular premature complex(es) no longer present Electronically Signed On 04-05-2020 14:23:26 SENIOR [employer]OLS A[employer]LY[employer] by Rashel Lenz [email or web address] <ELECTRONICALLY SIGNED> By: Rashel Lenz MD, [facility] 04/05/20 1423 13 13 Rashel Lenz MD, FACC /EPI
== END 2020-04-04 22:46 | disposition still patient (30) ==
LOC: ER 17:46
PROVIDERS: Physician Assistant
DX: F03.91 Unspecified dementia, unspecified severity, with behavioral disturbance (principal); R53.1 Weakness; E78.5 Hyperlipidemia, unspecified; I10 Essential (primary) hypertension; J44.9 Chronic obstructive pulmonary disease, unspecified; Z87.891 Personal history of nicotine dependence; Z88.8 Allergy status to other drugs, medicaments and biological substances; Z88.5 Allergy status to narcotic agent; Z79.899 Other long term (current) drug therapy; Z79.82 Long term (current) use of aspirin; Z79.4 Long term (current) use of insulin; Z98.890 Other specified postprocedural states

== ENCOUNTER 2020-04-04 21:14 | Inpatient (IN) | payer OTHER, MEDICARE ==
[~2020-04-04] VITALS: Ht 172.7 cm; Wt 65.8 kg
[2020-04-04 22:50] VITALS: BP 180/75
[2020-04-05 09:16] VITALS: BP 124/66
[2020-04-05 14:35] VITALS: BP 150/65
[2020-04-05 15:45] VITALS: BP 118/67
[2020-04-05 19:31] VITALS: BP 111/54
[2020-04-05 20:30] VITALS: BP 111/54
[2020-04-06 09:19] VITALS: BP 130/58
[2020-04-06 10:42] VITALS: BP 130/58
[2020-04-06 20:10] VITALS: BP 144/59
[2020-04-06 20:15] VITALS: BP 144/59
[2020-04-07 09:00] VITALS: BP 91/83
[2020-04-07 09:23] VITALS: BP 91/83
[2020-04-07 19:45] VITALS: BP 167/74
[2020-04-08 08:13] VITALS: BP 101/57
[2020-04-08 08:45] VITALS: BP 101/57
[2020-04-08 20:14] VITALS: BP 136/64
[2020-04-09 06:18] LABS: CALCIUM 9.3 mg/dL (8.5-10.1); CREATININE 0.8 mg/dL (0.7-1.3); POTASSIUM 3.6 mmol/L (3.5-5.1)
[2020-04-09 10:11] VITALS: BP 115/50
[2020-04-09 20:22] VITALS: BP 129/62
[2020-04-09 23:07] LABS: FOLIC ACID 19.6 ng/mL (8.6-58.9)
[2020-04-10 06:50] LABS: HEMATOCRIT 42.8 % (42.0-52.0); HEMOGLOBIN 14.1 gm/dL (14.0-18.0); MCH 29.4 pg (26.0-34.0); MCHC 32.9 g/dL (28.0-37.0); MCV 89.5 fL (80.0-100.0); RBC 4.79 mil/uL (4.50-6.00); RDW 16.6 % (10.5-14.5); WBC 4.4 thou/uL (4.0-11.0)
[2020-04-10 07:06] LABS: ALBUMIN 3.3 g/dL (3.4-5.0); CALCIUM 10.1 mg/dL (8.5-10.1); POTASSIUM 4.4 mmol/L (3.5-5.1); TOTAL BILIRUBIN 1.3 mg/dL (0.2-1.0); TOTAL PROTEIN 7.3 g/dL (6.4-8.2)
[2020-04-10 09:44] VITALS: BP 104/54
[2020-04-10 09:50] VITALS: BP 104/54
[2020-04-10 18:49] VITALS: BP 126/67
[2020-04-10 20:15] VITALS: BP 126/67
[2020-04-11 09:29] VITALS: BP 108/59
[2020-04-11 11:24] VITALS: BP 108/59
[2020-04-11 19:35] VITALS: BP 147/73
[2020-04-11 20:15] VITALS: BP 147/73
[2020-04-12 07:20] VITALS: BP 124/58
[2020-04-12 08:20] VITALS: BP 133/52
[2020-04-12 15:34] LABS: ALBUMIN 3.4 g/dL (3.4-5.0); CALCIUM 9.9 mg/dL (8.5-10.1); POTASSIUM 4.7 mmol/L (3.5-5.1); TOTAL PROTEIN 7.6 g/dL (6.4-8.2)
[2020-04-13 07:48] VITALS: BP 111/50
[2020-04-13 08:40] VITALS: BP 111/50
[2020-04-13 11:10] VITALS: BP 94/44
[2020-04-14 05:34] LABS: HEMOGLOBIN 12.7 gm/dL (14.0-18.0); MCH 29.6 pg (26.0-34.0); MCHC 33.6 g/dL (28.0-37.0); MCV 88.3 fL (80.0-100.0); RBC 4.31 mil/uL (4.50-6.00); WBC 2.8 thou/uL (4.0-11.0)
[2020-04-14 05:54] LABS: CALCIUM 9.2 mg/dL (8.5-10.1); CREATININE 0.9 mg/dL (0.7-1.3); POTASSIUM 3.8 mmol/L (3.5-5.1); TOTAL BILIRUBIN 0.9 mg/dL (0.2-1.0); TOTAL PROTEIN 6.5 g/dL (6.4-8.2)
[2020-04-14 09:01] VITALS: BP 146/61
[2020-04-14 19:28] VITALS: BP 110/59
[2020-04-14 19:59] VITALS: BP 110/59
[2020-04-15 06:40] LABS: HEMOGLOBIN 12.2 gm/dL (14.0-18.0); MCV 90.6 fL (80.0-100.0); RBC 4.2 mil/uL (4.50-6.00); RDW 16.8 % (10.5-14.5); WBC 2.9 thou/uL (4.0-11.0)
[2020-04-15 09:56] VITALS: BP 138/64
[2020-04-15 21:54] VITALS: BP 138/64
[2020-04-16 08:23] VITALS: BP 110/56
[2020-04-17 08:10] VITALS: BP 122/80
[2020-04-17 19:19] VITALS: BP 154/88
[2020-04-18 08:50] VITALS: BP 99/47
[2020-04-18 10:57] LABS: EOSINOPHILS 2.9 % (0.0-3.0); HEMOGLOBIN 12.4 gm/dL (14.0-18.0); LYMPHOCYTES 21.8 % (24.0-44.0); MCH 29.4 pg (26.0-34.0); MCHC 32.6 g/dL (28.0-37.0); MCV 90.3 fL (80.0-100.0); MONOCYTES 12.6 % (1.0-8.0); PLATELET COUNT 225 thou/uL (150-400); POLYS 61.7 % (36.0-66.0); RBC 4.21 mil/uL (4.50-6.00); RDW 16.3 % (10.5-14.5); WBC 3.3 thou/uL (4.0-11.0)
[2020-04-18 13:26] VITALS: BP 99/47
[2020-04-18 19:10] VITALS: BP 121/64
[2020-04-19 19:35] VITALS: BP 116/64
[2020-04-20 08:18] VITALS: BP 141/68
[2020-04-20 13:13] VITALS: BP 141/68
[2020-04-20 19:37] VITALS: BP 107/65
[2020-04-21 08:46] VITALS: BP 144/77
[2020-04-21 19:43] VITALS: BP 94/48
[2020-04-22 06:36] LABS: ABSOLUTE NEUTROPHILS 3.1 thou/uL (1.4-8.2); BASOPHILS 0.4 % (0.0-2.0); EOSINOPHILS 0.3 % (0.0-3.0); HEMATOCRIT 37.7 % (42.0-52.0); HEMOGLOBIN 12.3 gm/dL (14.0-18.0); LYMPHOCYTES 13.9 % (24.0-44.0); MCH 29.7 pg (26.0-34.0); MCHC 32.7 g/dL (28.0-37.0); MCV 90.7 fL (80.0-100.0); MONOCYTES 16.8 % (1.0-8.0); PLATELET COUNT 229 thou/uL (150-400); POLYS 68.6 % (36.0-66.0); RBC 4.15 mil/uL (4.50-6.00); RDW 16.7 % (10.5-14.5); WBC 4.5 thou/uL (4.0-11.0)
[2020-04-22 07:06] LABS: CALCIUM 9.8 mg/dL (8.5-10.1); CREATININE 0.8 mg/dL (0.7-1.3); POTASSIUM 3.7 mmol/L (3.5-5.1); TOTAL BILIRUBIN 0.8 mg/dL (0.2-1.0); TOTAL PROTEIN 6.6 g/dL (6.4-8.2)
[2020-04-22 08:56] VITALS: BP 105/46
[2020-04-22 19:20] VITALS: BP 128/61
[2020-04-22 20:10] VITALS: BP 128/61
[2020-04-23 08:34] VITALS: BP 120/48
[2020-04-23 08:50] VITALS: BP 120/48
[2020-04-23 19:20] VITALS: BP 128/70
[2020-04-24 08:00] VITALS: BP 112/72
[2020-04-24 08:08] VITALS: BP 112/72
[2020-04-24 19:44] VITALS: BP 131/49
[2020-04-25 09:40] VITALS: BP 119/87
[2020-04-25 19:57] VITALS: BP 150/87
[2020-04-26 08:44] VITALS: BP 128/74
[2020-04-26 19:23] VITALS: BP 119/63
[2020-04-27 10:27] VITALS: BP 138/67
[2020-04-27 19:34] VITALS: BP 145/67
[2020-04-27 20:00] VITALS: BP 134/72
[2020-04-28 01:47] VITALS: BP 135/71
[2020-04-28 05:52] LABS: ABSOLUTE NEUTROPHILS 1.9 thou/uL (1.4-8.2); BASOPHILS 0.7 % (0.0-2.0); EOSINOPHILS 2.1 % (0.0-3.0); HEMATOCRIT 35.6 % (42.0-52.0); HEMOGLOBIN 11.8 gm/dL (14.0-18.0); LYMPHOCYTES 23.7 % (24.0-44.0); MCH 29.7 pg (26.0-34.0); MCHC 33.1 g/dL (28.0-37.0); MCV 89.8 fL (80.0-100.0); MONOCYTES 13.1 % (1.0-8.0); PLATELET COUNT 306 thou/uL (150-400); POLYS 60.4 % (36.0-66.0); RBC 3.97 mil/uL (4.50-6.00); RDW 16.5 % (10.5-14.5); WBC 3.1 thou/uL (4.0-11.0)
[2020-04-28 06:20] LABS: ALBUMIN 2.7 g/dL (3.4-5.0); CREATININE 0.8 mg/dL (0.7-1.3); POTASSIUM 3.5 mmol/L (3.5-5.1); TOTAL BILIRUBIN 0.7 mg/dL (0.2-1.0); TOTAL PROTEIN 6.7 g/dL (6.4-8.2)
[2020-04-28 09:35] VITALS: BP 112/62
[2020-04-28 19:08] VITALS: BP 104/55
[2020-04-29 08:24] VITALS: BP 118/71
[2020-04-29 11:17] VITALS: BP 118/71
[2020-04-29 20:05] VITALS: BP 167/83
[2020-04-29 20:08] VITALS: BP 167/83
[2020-04-30 10:38] VITALS: BP 145/75
[2020-05-01 09:41] VITALS: BP 145/75
[2020-05-01 09:59] VITALS: BP 149/83
[2020-05-01 10:01] VITALS: BP 149/83
[2020-05-01 18:06] VITALS: BP 112/66
[2020-05-02 10:47] VITALS: BP 113/60
[2020-05-02 19:51] VITALS: BP 124/104
[2020-05-03 08:51] VITALS: BP 101/63
[2020-05-03 20:14] VITALS: BP 129/102
[2020-05-04 10:26] VITALS: BP 90/50
[2020-05-04 11:39] VITALS: BP 90/50
[2020-05-04 19:41] VITALS: BP 165/85
[2020-05-04 22:53] LABS: URINE BILIRUBIN NEGATIVE (Negative); URINE BLOOD NEGATIVE (Negative); URINE CLARITY CLEAR; URINE COLOR YELLOW; URINE GLUCOSE-RANDOM* NEGATIVE (Negative); URINE KETONES TRACE (Negative); URINE LEUKOCYTES NEGATIVE (Negative); URINE NITRITE NEGATIVE (Negative); URINE PROTEIN (DIPSTICK) NEGATIVE (Negative)
[2020-05-05 09:44] VITALS: BP 136/76
[2020-05-06 05:54] VITALS: BP 95/54
[2020-05-06 06:08] LABS: HEMATOCRIT 36.8 % (42.0-52.0); HEMOGLOBIN 11.9 gm/dL (14.0-18.0); MCH 29.6 pg (26.0-34.0); MCHC 32.2 g/dL (28.0-37.0); MCV 91.9 fL (80.0-100.0); RBC 4.01 mil/uL (4.50-6.00); WBC 6.5 thou/uL (4.0-11.0)
[2020-05-06 06:56] LABS: ALBUMIN 2.9 g/dL (3.4-5.0); CALCIUM 8.9 mg/dL (8.5-10.1); CREATININE 0.8 mg/dL (0.7-1.3); POTASSIUM 4.6 mmol/L (3.5-5.1); TOTAL BILIRUBIN 0.5 mg/dL (0.2-1.0); TOTAL PROTEIN 6.3 g/dL (6.4-8.2)
[2020-05-06 09:52] VITALS: BP 107/62
[2020-05-07 07:47] VITALS: BP 147/78
[2020-05-07 16:19] VITALS: BP 119/72
[2020-05-07 18:23] VITALS: BP 104/51
[2020-05-08 10:10] VITALS: BP 134/64; BP 134/69
[2020-05-08 20:01] VITALS: BP 134/96
[2020-05-09 09:27] VITALS: BP 108/61
[2020-05-09 10:27] VITALS: BP 108/61
[2020-05-09 20:08] VITALS: BP 114/89
[2020-05-09 20:45] VITALS: BP 114/87
[2020-05-10 08:56] VITALS: BP 113/85
[2020-05-10 09:00] VITALS: BP 113/85
[2020-05-10 17:08] VITALS: BP 130/80
[2020-05-10 19:26] VITALS: BP 107/60
[2020-05-10 20:20] VITALS: BP 107/60
[2020-05-11 08:30] VITALS: BP 91/51
[2020-05-11 09:34] VITALS: BP 91/51
[2020-05-11 19:53] VITALS: BP 93/41
[2020-05-12] MEDS ORDERED: CARVEDILOL3.125 MG PO (07:25)
[2020-05-12] MEDS ORDERED: ATIVAN0.5 M1 PO (07:25)
[2020-05-12] MEDS ORDERED: BENADRYL ALLERG25 MG PO (07:26)
[2020-05-12] MEDS ORDERED: DEPAKOTE SPRIN125 MG PO ×2 (07:27→07:28)
[2020-05-12] MEDS ORDERED: DULCOLAX STOOL100 M1 PO (07:28)
[2020-05-12] MEDS ORDERED: FOLIC ACID1 MG PO (07:28)
[2020-05-12] MEDS ORDERED: GLUCOPHAGE1000 MG PO (07:29)
[2020-05-12] MEDS ORDERED: HALOPERIDOL 5 MG5 MG PO (07:30)
[2020-05-12] MEDS ORDERED: RISPERDAL0.5 MG PO ×3 (07:31→07:32)
[2020-05-12] MEDS ORDERED: PROTONIX 20 MG20 MG PO (07:31)
[2020-05-12] MEDS ORDERED: REMERON15 M2 PO (07:31)
[2020-05-12] MEDS ORDERED: ALLOPURINOL 10100 M3 PO (07:33)
[2020-05-12 09:16] VITALS: BP 122/59
== END 2020-05-12 10:45 | DRG 884 ==
LOC: SBH
PROVIDERS: Internal Medicine; ADMIT Psychiatry & Neurology Psychiatry; ATTEND Psychiatry & Neurology Psychiatry
DX: F01.51 Vascular dementia, unspecified severity, with behavioral disturbance (principal); U07.1 COVID-19; I25.10 Atherosclerotic heart disease of native coronary artery without angina pectoris; M10.9 Gout, unspecified; K21.9 Gastro-esophageal reflux disease without esophagitis; E11.9 Type 2 diabetes mellitus without complications; K58.9 Irritable bowel syndrome, unspecified; I10 Essential (primary) hypertension; D72.819 Decreased white blood cell count, unspecified; E53.8 Deficiency of other specified B group vitamins; D63.8 Anemia in other chronic diseases classified elsewhere; E78.5 Hyperlipidemia, unspecified; Z66 Do not resuscitate; Z88.8 Allergy status to other drugs, medicaments and biological substances; Z85.01 Personal history of malignant neoplasm of esophagus; Z87.891 Personal history of nicotine dependence; Z86.16 Personal history of COVID-19
CPT/HCPCS: 10880